=== PATIENT | female | born 1995 | race Caucasian/White ===

== ENCOUNTER 2016-12-16 11:04 | Inpatient (IN) | payer BC, OTHER ==
[~2016-12-16] VITALS: Ht 162.6 cm; Wt 59.0 kg
--- NOTE | 2016-12-17 14:00 | NUR ---
Pre-Admission Assessment Electronics Mechanic asked to assess pt in intake room for clearance for admitting onto [facility]. Pt is drowsy and oriented. Pt states she used heroin IV and took 5 2mg bars of Xanax 1 hour prior to arrival. Pt is able to articulate her needs and is coherent with staff suggestion. Calm and cooperative, although "nods" off occasionally. Pt VS: 112/71 - 109 - 16 - 96% - 98.1. Pt is wanting to be admitted to [facility] and is suitable for admitting. Will continue to monitor, support and encourage according to plan of care.
--- NOTE | 2016-12-17 14:10 | NUR ---
Admission Note LE: Entered on Wrong pt Pt is a 21 year old female admitted to [facility] to detox from Heroin, Meth and Xanax. Pt states she has been using heroin and Xanax for approximately 6 or 7 years and uses up to 2g of heroin a day, as well as 2-8 mg of Xanax daily. Pt was admitted under the care of Dr. Isaac. Pt is drowsy and lethargic on presentation, having used 0.5 mg Heroin and 2mg Xanax just prior to her admittance. Pt has difficulty staying awake and often, nods off during admit process. Pt is polite and continually apologizes for her nodding off. Pt denies any HI/SI and A/VH. Pt denies being hospitalized in the last month, but does endorse being here in 10/11. Pt brought home medications of Clonidine, but also states she has prescriptions for several anxiety medication, but does not take them. Pt states her medical conditions include sciatica, hypo-tension, anxiety and and has a history of drug related seizures. Pt does have some discoloration to her left AC joint, with no swelling or tenderness noted. Pt states, I missed while shooting up. It hurts a little, but thats what happens. Pt is full code with a regular diet. Pt has a steady gait when ambulating and is able to go outside for smoking prior to commercial loan underwriter starting admit process. Pt initial COWS of 5 and CIWA of 3. Pt endorses having been to numerous treatment and detox centers and has been unable to gain more than 6 months of sobriety, that being in 2013 or 2014. Pt has no physical complaints and her physical assessment is all WNL. Pt reports her PCP to be Dr. Villavicencio in [place]. Pt has been couch surfing with her fianc at friends homes. Pt had her urine tested and tested positive for Opiates, Benzos and amphetamines. HCG negative. Bed in lowest position with locks on and call light in reach. All safety measures in place.
[2016-12-17] MEDS ORDERED: DIAZEPAM 5 MG TABLET PO PRN (14:45)
[2016-12-17] MEDS ORDERED: MIRALAX 17 GM POWD.PACK PO PRN (14:45)
[2016-12-17] MEDS ORDERED: LORAZEPAM 2 MG/1 ML VIAL IM PRN (14:45)
[2016-12-17] MEDS ORDERED: diphenhydrAMINE 50 MG CAPSULE PO PRN (14:45)
[2016-12-17] MEDS ORDERED: DIAZEPAM 10 MG TABLET PO PRN ×2 (14:45)
[2016-12-17] MEDS ORDERED: MAG HYDROX/AL HYDROX/SIMETH 30 ML LIQUID UDC PO PRN (14:45)
[2016-12-17] MEDS ORDERED: IBUPROFEN 600 MG TABLET PO PRN (14:45)
[2016-12-17] MEDS ORDERED: CLONIDINE HCL 0.1 MG TABLET PO PRN (14:45)
[2016-12-17] MEDS ORDERED: ACETAMINOPHEN 325 MG TABLET PO PRN (14:45)
[2016-12-17] MEDS ORDERED: LOPERAMIDE HCL 2 MG CAPSULE PO PRN ×2 (14:45)
[2016-12-17] MEDS ORDERED: ONDANSETRON 4 MG/2 ML VIAL IM PRN (14:45)
[2016-12-17] MEDS ORDERED: MAGNESIUM HYDROXIDE 30 ML LIQUID UDC PO PRN (14:45)
[2016-12-17] MEDS ORDERED: THIAMINE HCL 200 MG/2 ML VIAL IM ONE (14:45)
[2016-12-17] MEDS ORDERED: DICYCLOMINE HCL 20 MG TABLET PO PRN (14:45)
[2016-12-17] MEDS ORDERED: CLON0.1T PO (14:49)
[2016-12-17] MEDS ORDERED: BUPRENORPHINE HCL 2 MG TAB.SUBL SL PRN (15:00)
[2016-12-17] MEDS ORDERED: NICOTINE POLACRILEX 4 MG GUM-PK OF TEN BC PRN (15:00)
[2016-12-17] MEDS ORDERED: METHOCARBAMOL 750 MG TABLET PO PRN (15:00)
[2016-12-17 15:12] LABS: *URINE HCG, QUAL NEGATIVE (NEGATIVE)
[2016-12-17 15:25] LABS: *AMPHETAMINE, URINE POSITIVE (NEGATIVE); *BARBITURATE, URINE NEGATIVE (NEGATIVE); *CANNABINOID, URINE NEGATIVE (NEGATIVE); *COCCAINE, URINE NEGATIVE (NEGATIVE); *OPIATE, URINE POSITIVE (NEGATIVE); *PHENCYCLIDINE SCREEN,URINE NEGATIVE (NEGATIVE)
[2016-12-17 15:51] LABS: BASOPHILS % (AUTO) 0.5 % (0.0-2.0); EOSINOPHILS # (AUTO) 0.5 K/uL (0.0-0.7); EOSINOPHILS % (AUTO) 5.7 % (0.0-7.0); HEMATOCRIT 42.9 % (37-47); HEMOGLOBIN 14.3 G/DL (12.0-16.0); LYMPHOCYTES # (AUTO) 4.1 K/UL (0.8-4.8); MEAN CORPUSCULAR HEMOGLOBIN 29.7 UUG (27.0-31.0); MEAN CORPUSCULAR HGB CONC 33 g/dL (32.0-37.0); MEAN CORPUSCULAR VOLUME 88.9 FL (81.0-99.0); MONOCYTES # (AUTO) 0.6 K/UL (0.1-1.30); MONOCYTES % (AUTO) 7.2 % (0.0-11.0); NEUTROPHILS # (AUTO) 3.2 K/UL (1.8-8.9); NEUTROPHILS % (AUTO) 38.6 % (38.5-71.5); PLATELET COUNT (AUTO) 264 K/UL (150-450); RED BLOOD CELL COUNT(AUTO) 4.82 MIL/UL (4.2-5.4); WHITE BLOOD COUNT (AUTO) 8.4 K/UL (4.0-11.2)
[2016-12-17 16:13] LABS: ALANINE AMINOTRANSFERASE 14 U/L (14-59); ALKALINE PHOSPHATASE 61 U/L (50-136); ASPARTATE AMINOTRANSFERASE 23 U/L (15-37); BILIRUBIN,TOTAL 0.4 mg/dL (0.2-1.0); CARBON DIOXIDE 29 mmol/L (21-32); CHLORIDE 102 mmol/L (98-107); CREATININE 0.7 mg/dL (0.6-1.3); GLUCOSE 98 mg/dL (74-106); MAGNESIUM 1.9 mg/dL (1.8-2.4); POTASSIUM 3.2 mmol/L (3.5-5.1); TOTAL PROTEIN, SERUM 7.9 g/dL (6.4-8.2); UREA NITROGEN, BLOOD 6 mg/dL (7-18)
[2016-12-17 16:15] VITALS: BP 118/77
[2016-12-17 16:21] LABS: ETHANOL < 3 MG/DL (0-0)
[2016-12-17] MEDS ORDERED: POTASSIUM CHLORIDE 20 MEQ TAB.PRT.SR PO ONE ×3 (16:45→19:00)
[2016-12-17] MEDS: GABAPENTIN 300 MG CAPSULE PO SCH ×2 (17:01→20:24)
[2016-12-17 17:03] LABS: THYROID STIMULATING HORMONE 1.104 mIU/mL (0.358-3.740)
--- NOTE | 2016-12-17 19:15 | NUR ---
Start of Shift Note: Patient is a 21 y.o female admitted today 12/17/16 for Opiate & Benzo dependence. Patient reported medical history of Anxiety, Hypotension, Sciatica & history of seizure. Patient is on a regular diet with no known food and drug allergies noted. Full Code status noted. Fall and Seizure precaution noted. Skin noted to be intact. Patient is placed on a 5-day Subutex and 5-day Valium taper to be started tomorrow 12/18/16. Last COWS 3 CIWA 5. No PRN medication given during day shift. Pt noted with a potassium level of 3.2 and was given K-dur for replacement. Patient is asleep in bed and hard to arouse. Pt appears sedated. Vitals WNL. No shortness of breath noted. Respiration even & unlabored. Abdomen soft & non-distended. Patient denies nausea/vomiting & sweating. No hand tremors noted. Patient appears comfortable in bed. No facial grimacing noted. Safety precautions are in place. Bed locked in lowest position. Both side rails up. Call light within pt's reach. Will continue to monitor patient.
--- NOTE | 2016-12-17 19:25 | NUR ---
End of Shift Pt is a 21 year old female admitted on 12/17/16 for Heroin, Meth and Xanax detox. Pt has NKDA and is a full code. PMH of anxiety, hypo-tension, sciatica and seizures. Initial COWS of 5 and CIWA of 3. No PRNs given on my shift. Pt was administered her Thiamine B-1 IM. Book Store Associate admitted pt and completed full physical assessment and all related admit paperwork. Pt will be started on 5 day Valium and Subutex taper on 12/18/16. Skin intact, except for some bruising on left AC. Pt is cooperative, although sedated and drowsy. HCG was negative and DSRU was positive for opiates and benzos. Full report provided to NOC nurse with no further comments, questions or concerns voiced. Bed in low position with wheels locked and call light within reach. All safety measures in place.
[2016-12-17 20:00] VITALS: BP 94/59
[2016-12-18] VITALS: BP 89/54
[2016-12-18 04:00] VITALS: BP 92/54
--- NOTE | 2016-12-18 07:16 | NUR ---
PRN Robaxin & Zofran Patient complains of severe generalized body aches and nausea. No episode of vomiting noted. PRN Robaxin & Zofran administered as ordered. Will continue to monitor.
[2016-12-18] MEDS: ONDANSETRON ODT 4 MG TAB.RAPDIS SL PRN ×2 (07:17→22:09)
--- NOTE | 2016-12-18 07:39 | NUR ---
End of Shift Note: Patient is a 21 y.o female admitted today 12/17/16 for Opiate & Benzo dependence. Patient reported medical history of Anxiety, Hypotension, Sciatica & history of seizure. Patient is on a regular diet with no known food and drug allergies noted. Full Code status noted. Fall and Seizure precaution noted. Skin noted to be intact. Patient is on a 5-day Subutex and 5-day Valium taper to be started today 12/18/16. Patient had an uneventful night. Pt has been sleeping most of the night. Pt was given PRN Robaxin and Zofran. Last COWS 7 CIWA 8. Pt remained stable and Vitals remains WNL. Patient was able to sleep for a total of 10 hours. Pt consumed 946ml of fluids. Voided 1x with no bowel movement. All needs attended & met. Safety precautions are in place. Will endorse pt to day shift nurse.
[2016-12-18 08:00] VITALS: BP 104/74
--- NOTE | 2016-12-18 08:15 | NUR ---
START OF SHIFT: RECEIVED PT A/O X 4. SHE PRESENTS WITH ANXIOUS AND IRRITABLE MOOD AND CONGRUENT AFFECT. SHE REPORTS BODY ACHES,RESTLESSNESS ,ANXIETY,IRRITABILITY AND WATERY EYES. COWS 14 CIWA 8. SUBUTEX TAPER STARTED. VALIUM ADMINISTERED ORDERED. SHE STATES SHE HAS NO APPETITE. PPD PLANTED TO LFA. ENCOURAGED INCREASED FLUIDS TO ASSIST IN FACILITATING DETOX PROCESS. ENCOURAGED REST TODAY. WILL CONTINUE TO MONITOR AND PROVIDE SAFE AND SUPPORTIVE ENVIRONMENT.
[2016-12-18] MEDS ORDERED: 5 DAY TAPER BUPRENORPHINE -SERENITY PROTOCOL SL PRN (09:00)
[2016-12-18] MEDS ORDERED: TUBERCULIN,PURIF.PROT.DERIV. 5 TU/0.1 ML TEST ID ONE (09:00)
[2016-12-18] MEDS ORDERED: 5 DAY TAPER VALIUM-SERENITY PROTOCOL PO PRN (09:00)
[2016-12-18] MEDS: THIAMINE HCL 100 MG TABLET PO SCH (09:44)
[2016-12-18] MEDS: GABAPENTIN 300 MG CAPSULE PO SCH ×3 (09:44→22:10)
[2016-12-18] MEDS: MULTIVITAMINS,THERAPEUTIC TABLET PO SCH (09:44)
[2016-12-18] MEDS: DOCUSATE SODIUM 250 MG CAPSULE PO SCH (09:44)
[2016-12-18] MEDS: FOLIC ACID 1 MG TABLET PO SCH (09:44)
[2016-12-18] MEDS: DIAZEPAM 10 MG TABLET PO SCH ×4 (09:45→22:09)
[2016-12-18] MEDS: BUPRENORPHINE HCL 2 MG TAB.SUBL SL SCH ×4 (09:45→22:09)
--- NOTE | 2016-12-18 11:27 | NUR ---
ENDORSED CARE TO RN.
--- NOTE | 2016-12-18 11:28 | NUR ---
Endorsement SBAR report rcv'd from Khushboo RIBERA.
[2016-12-18 12:00] VITALS: BP 131/76
--- NOTE | 2016-12-18 12:30 | NUR ---
Therapist advised client of group times. Client stated she won't be going to group because she does not feel well.
[2016-12-18 14:11] LABS: HEPATITIS B SURFACE AG Negative (Negative)
[2016-12-18] MEDS: ACETAMINOPHEN ES 500 MG TABLET PO SCH ×2 (14:16→22:09)
[2016-12-18] MEDS ORDERED: TRAZODONE 100 MG TABLET PO PRN (14:30)
[2016-12-18 16:00] VITALS: BP 119/63
--- NOTE | 2016-12-18 16:00 | NUR ---
PRN administration Pt c/o generalized pain 03/06. Administered PRN toradol per MD order. Will continue to monitor pt.
[2016-12-18] MEDS: KETOROLAC TROMETHAMINE 30 MG INJ IM PRN (16:05)
--- NOTE | 2016-12-18 16:30 | NUR ---
Reassessment Pt states that her pain level is 3/10 and she is comfortable. Will continue to monitor pt. All needs addressed at this time. Will continue to monitor pt.
--- NOTE | 2016-12-18 19:05 | NUR ---
End of shift note Pt was admitted for Opiate & Benzo dependence. Pt has a PMHx of Anxiety, Hypotension, Sciatica & history of seizure. Pt is a full code, is on a regular diet and has NKA. Pt had one PRN dose of toradol to manage her generalized pain with relief. Pt is tolerating the subutex and vailum taper well without any ASE. Pt drank 2665 ml of fluids, ate 50% of breakfast and lunch and 100% of dinner, pt had 4 voids and no BM. Pt has no complaints at this time. Will endorse SBAR to oncoming shift. All needs addressed at this time.
--- NOTE | 2016-12-18 19:15 | NUR ---
Start of Shift Note: Patient is a 21 y.o female admitted today 12/17/16 for Opiate & Benzo dependence. Patient reported medical history of Anxiety, Hypotension, Sciatica & history of seizure. Patient is on a regular diet with no known food and drug allergies noted. Full Code status noted. Fall and Seizure precaution noted. Skin noted to be intact. Patient is on a 5-day Subutex and 5-day Valium taper and tolerating well. Last COWS 10 CIWA 11. Pt was given PRN Toradol during day shift. Patient is alert and oriented to name, place and situation. Patient is ambulatory with a steady gait. No shortess of breath noted. Respiration even & unlabored. Abdomen soft & non-distended. Nausea noted with no episode of vomiting. Patient presented with complains of anxiety, 3/10 generalized body aches, sweating, chills, stomach cramps, & moderate headache. Patient denies hallucinations. Safety measures are in place. Bed locked in lowest position. Both side rails up. Call light within pt's reach. Will continue to monitor patient.
[2016-12-18 20:00] VITALS: BP 128/83
--- NOTE | 2016-12-18 22:09 | NUR ---
PRN Zofran Patient still complains of nausea. No episode of vomiting noted. PRN Zofran SL administered as ordered. Will monitor for effectiveness of medication. Will continue to monitor.
--- NOTE | 2016-12-18 23:09 | NUR ---
PRN Reassessment Patient verbalized improved nausea. Patient denies any episode of vomiting. PRN medication effective. Will continue to monitor.
--- NOTE | 2016-12-18 23:39 | NUR ---
PRN Trazodone Patient requesting for medication to help her sleep. PRN Trazodone administered as ordered. Will monitor for effectiveness of medication.
[2016-12-19] VITALS: BP 129/65
[2016-12-19 04:00] VITALS: BP 94/65
--- NOTE | 2016-12-19 07:09 | NUR ---
End of Shift Note: Patient had an uneventful night. Patient continues on her Valium and Subutex taper and tolerating well. Last COWS 4 CIWA 4. Pt reported that taper medications is effective in controlling her withdrawal symptoms. Patient was given PRN Zofran for nausea & Trazodone for sleep and were effective. Pt remained stable and vitals remains WNL. Pt remained compliant with medications. Encourage pt to increase fluid intake. Pt still asleep at this time with no s/s of distress noted. Pt was able to sleep for a total of 5 hours. Pt consumed 882 ml of fluids, voided 2x with no bowel movement. All needs attended & met. Safety precautions are in place. Bed locked in lowest position. Both side rails up. Will endorse pt to day shift nurse.
--- NOTE | 2016-12-19 07:20 | NUR ---
Start of shift note SBAR report rcv'd. Pt was admitted for opiate and benzo dependence. Pt has a PMHx of anxiety, hypotension, sciatica and seizures. Pt is on a 5 day subutex and 5 day valium taper. Pt is currently resting in bed. Pt has no complaints at this time. Will continue to monitor pt. All needs addressed at this time.
[2016-12-19 08:00] VITALS: BP 82/44
[2016-12-19] MEDS: GABAPENTIN 300 MG CAPSULE PO SCH (09:00)
[2016-12-19] MEDS: ACETAMINOPHEN ES 500 MG TABLET PO SCH (09:00)
[2016-12-19] MEDS ORDERED: DIAZEPAM 10 MG TABLET PO SCH (09:00)
[2016-12-19] MEDS ORDERED: BUPRENORPHINE HCL 2 MG TAB.SUBL SL SCH (09:00)
[2016-12-19] MEDS: DOCUSATE SODIUM 250 MG CAPSULE PO SCH (09:00)
[2016-12-19] MEDS: THIAMINE HCL 100 MG TABLET PO SCH (09:00)
[2016-12-19] MEDS: MULTIVITAMINS,THERAPEUTIC TABLET PO SCH (09:00)
[2016-12-19] MEDS: FOLIC ACID 1 MG TABLET PO SCH (09:00)
--- NOTE | 2016-12-19 09:45 | NUR ---
Pt refused meds Pt states that she feels too drowsy from her trazadone last night and that she does not want her medications right now. VS are WNL for the pt. Will continue to monitor pt. All needs addressed at this time.
--- NOTE | 2016-12-19 11:30 | NUR ---
PRN administration Pt c/o generalized pain 9/10, dyspepsia and anxiety. Administered PRN clonidine, maalox and toradol per MD order. Will continue to monitor pt.
[2016-12-19] MEDS: KETOROLAC TROMETHAMINE 30 MG INJ IM PRN (11:32)
--- NOTE | 2016-12-19 11:50 | NUR ---
MD communication Pt states "I feel like I am going to have a seizure" Dr Isaac notified, ordered valium 10mg PO x 1 now. Orders entered, unable to enter orders.
[2016-12-19 12:00] VITALS: BP 105/60
[2016-12-19] MEDS ORDERED: DIAZEPAM 10 MG TABLET PO ONE (12:00)
--- NOTE | 2016-12-19 12:00 | NUR ---
Reassessment Pt states that her dyspepsia has improved and that her level of pain has decreased to a level of 6/10, pt stated "it took a while for the toradol to fully work yesterday, but when it did, I got to a pain level of 0/10". Pt has a COWS of 5 and CIWA of 7. Pt compliant with 1x order for valium.
[2016-12-19] MEDS ORDERED: DIAZEPAM 10 MG TABLET ONE (12:13)
--- NOTE | 2016-12-19 12:50 | NUR ---
Reassessment Pt states that she continues to have pain, dyspepsia and anxiety. Dr Isaac is aware and will order further medications to manage the pt's s/s of withdrawal.
[2016-12-19] MEDS ORDERED: HYDROXYZINE PAMOATE 25 MG CAPSULE PO SCH (14:00)
[2016-12-19] MEDS ORDERED: BACLOFEN 20 MG TABLET PO SCH (14:00)
[2016-12-19] MEDS ORDERED: SCOPOLAMINE HYDROBROMIDE 1.5 MG PATCH TD SCH (14:00)
--- NOTE | 2016-12-19 14:45 | NUR ---
AMA Pt left the facility AMA at 1445. Pt stated that she was not ready to remain sober. Dr Isaac and Dr Munoz are aware. Pt refused all offered medications to alleviate her s/s of withdrawal that she was experiencing. Pt spoke with multiple staff members without success. All belongings returned to pt including medication. Pt denied any SI/HI. Pt ID band removed, pt ambulated off of unit with REVENUE CYCLE MANAGER and left AMA.
[2016-12-19] MEDS ORDERED: GABAPENTIN 300 MG CAPSULE PO SCH ×2 (15:00→21:00)
[2016-12-20] MEDS ORDERED: DIAZEPAM 5 MG TABLET PO SCH (09:00)
[2016-12-20] MEDS ORDERED: BUPRENORPHINE HCL 2 MG TAB.SUBL SL SCH ×2 (09:00→15:00)
[2016-12-21] MEDS ORDERED: DIAZEPAM 5 MG TABLET PO SCH (09:00)
[2016-12-21] MEDS ORDERED: BUPRENORPHINE HCL 2 MG TAB.SUBL SL SCH (09:00)
[2016-12-22] MEDS ORDERED: BUPRENORPHINE HCL 2 MG TAB.SUBL SL SCH (09:00)
[2016-12-22] MEDS ORDERED: DIAZEPAM 5 MG TABLET PO SCH (09:00)
== END 2016-12-19 14:45 | disposition left against medical advice (07) | DRG 894 ==
LOC: SRC 12-17 13:28
PROVIDERS: ADMIT Internal Medicine; ATTEND Internal Medicine
PROC: HZ2ZZZZ Detoxification Services for Substance Abuse Treatment (ICD-10-PCS; principal; 2016-12-17)
PROC: HZ31ZZZ Individual Counseling for Substance Abuse Treatment, Behavioral (ICD-10-PCS; 2016-12-18)
DX: F13.239 Sedative, hypnotic or anxiolytic dependence with withdrawal, unspecified (principal); F11.23 Opioid dependence with withdrawal; E87.6 Hypokalemia; F15.90 Other stimulant use, unspecified, uncomplicated; Z59.0 Homelessness; M25.562 Pain in left knee; F41.1 Generalized anxiety disorder; Z91.14 Patient's other noncompliance with medication regimen; Z81.3 Family history of other psychoactive substance abuse and dependence; F39 Unspecified mood [affective] disorder; F17.210 Nicotine dependence, cigarettes, uncomplicated
CPT/HCPCS: 36415; 80307; 80346; 80361; 83735; 84443; 84703; 85025; 86592; 86705; 86803; 87340; 87806; A4663; G0480; J1885; J3411; Q0162